=== PATIENT | female | born 1985 | race Caucasian/White ===

== ENCOUNTER 2016-11-17 17:07 | Emergency (ER) | payer OTHER ==
[~2016-11-17] VITALS: Ht 160 cm; Wt 115.0 kg
[~2016-11-17 17:07] MED LIST: IBUP600 PO; OXYC1SOL5 PO; PERI8.6T PO
[2016-11-17 17:09] VITALS: BP 175/112; PULSE 128; RESP 20; TEMP 98.2; O2SAT 99
[2016-11-17 17:19] VITALS: BP 174/92; PULSE 106; RESP 18; O2SAT 100
--- NOTE | 2016-11-17 17:26 | PD ---
HPI Chief Complaint: Chest Pain Time Seen by Provider: 17:17 Travel History International Travel<30 days: No Contact w/Intl Traveler<30days: No Traveled to known affect area: No History of Present Illness HPI The patient was seen and examined in the presence of the nurse. She complains of chest pain. Duration 7 hours. Severity is moderate. Location is center sternum. No injury. Denies fever or cough. No history of cardiac or pulmonary disease. No alleviating factors. She does have anxiety issues [facility] Past Medical History Medical History: Denies Significant Hx ?: Not Past Surgical History Section: Yes Social History Alcohol Use: No Tobacco Use: No Substance Use: No Allergies-Medications (Allergen,Severity, Reaction): Coded Allergies: No Known Allergies (Unverified , 02/04/15) Reported Meds & Prescriptions Reported Meds & Active Scripts Active No Active Prescriptions or Reported Medications Review of Systems General / Constitutional: No: Fever Eyes: No: Visual changes HENT: No: Headaches Cardiovascular: Positive: Chest Pain or Discomfort Respiratory: No: Shortness of Breath Gastrointestinal: No: Abdominal Pain Genitourinary: No: Dysuria Musculoskeletal: No: Pain Skin: No Rash Neurologic: No: Weakness Psychiatric: Positive: Anxiety, No: Depression Endocrine: No: Polydipsia Hematologic/Lymphatic: No: Easy Bruising Physical Exam Narrative GENERAL: Well-nourished, well-developed patient in no apparent distress. SKIN: Focused skin assessment reveals no rash and nodules. Skin is Warm and dry. HEAD: Atraumatic. Normocephalic. EYES: Pupils equal and round. No scleral icterus. No injection or drainage. ENT: No nasal bleeding or discharge. Mucous membranes pink and moist. NECK: Trachea midline. No JVD. CARDIOVASCULAR: Regular rate and rhythm. No murmur appreciated. RESPIRATORY: No accessory muscle use. Clear to auscultation. Breath sounds equal bilaterally. GASTROINTESTINAL: Abdomen soft, non-tender, nondistended. Hepatic and splenic margins not palpable. MUSCULOSKELETAL: No obvious deformities. No clubbing. No cyanosis. No edema. Has readily reproducible chest wall tenderness in the center sternum NEUROLOGICAL: Awake and alert. No obvious cranial nerve deficits. Motor grossly within normal limits. Normal speech. PSYCHIATRIC: Appropriate mood and affect; insight and judgment normal. Data Data Last Documented VS Vital Signs Date Time Temp Pulse Resp B/P Pulse Ox O2 Delivery O2 Flow Rate FiO2 11/17/16 17:29 162/72 11/17/16 17:19 106 18 100 Room Air 11/17/16 17:09 98.2 Orders Electrocardiogram (11/17/16 ) Electrocardiogram (11/17/16 ) [employer] Operator / Telemetry [email or web address] (11/17/16 17:22) [facility] Medical Decision Making Medical Screen Exam Complete: Yes Emergency Medical Condition: Yes Medical Record Reviewed: Yes Differential Diagnosis Differential diagnosis includes NE, angina, pericarditis, pleurisy, GERD, anxiety. Narrative Course I have reviewed the patient's electronic medical record. I reviewed her EKG which shows sinus rhythm without ST elevation or ectopy Extended cardiac monitoring reveals sinus rhythm without ectopy On arrival she was tachycardic but this spontaneously resolved and now her heart rate is 87 Her chest pain is clearly noncardiac and musculoskeletal and will not require urgent stress testing or inpatient evaluation Diagnosis Primary Impression: Chest pain in adult Additional Instructions: The patient was advised to follow up with their physician and return if they worsen. Med/Other Pt SpecificInfo: Other Scripts No Active Prescriptions or Reported Meds Disposition: 01 DISCHARGE HOME Condition: Stable Rafael Pham MD November 17, 2016 17:26
[2016-11-17 17:29] VITALS: BP 162/72
--- NOTE | 2016-11-18 14:34 | EKG ---
Date Performed: 11/17/2016 Time Performed: 17:21:56 PTAGE: 31 years EKG: Sinus rhythm WITH SINUS ARRHYTHMIA NORMAL ECG NO PREVIOUS TRACING DOCTOR: Julian Malloy Interpretating Date/Time 11/18/2016 14:33:03
[2016-12-17] MEDS ORDERED: CETI-14 PO (11:13)
== END 2016-11-17 19:17 | disposition home or self-care (01) ==
LOC: NEPC 17:07
DX: R07.9 Chest pain, unspecified (principal)
CPT/HCPCS: 93005; 99283

== ENCOUNTER 2016-11-30 23:43 | Emergency (ER) | payer OTHER ==
[2016-11-30 23:47] VITALS: BP 142/96; PULSE 98; RESP 18; TEMP 98.7; O2SAT 100
[2016-12-01] MEDS ORDERED: SODIUM CHLOR 0.9% 1000 ML INJ 1,000 ML IV SCH (03:02)
[2016-12-01] MEDS ORDERED: MORPHINE SULFATE 4 MG/ML INJ IV PUSH ONE (03:15)
[2016-12-01] MEDS ORDERED: ONDANSETRON HCL 4 MG/2 ML VIAL IVP ONE (03:15)
[2016-12-01] MEDS ORDERED: FAMOTIDINE 20 MG/2 ML VIAL IV PUSH ONE (03:15)
[2016-12-01] MEDS ORDERED: SODIUM CHLORIDE 0.9% FLUSH 10 ML FLUSH IV FLUSH PRN (03:15)
[2016-12-01 03:26] VITALS: RESP 16
[2016-12-01 03:30] LABS: BASOPHIL # 0.1 TH/MM3 (0-0.2); BASOPHIL % 0.6 % (0.0-2.0); EOSINOPHIL # 0.1 TH/MM3 (0-0.4); HEMO FLAGS DIFF FINAL; LYMPH % 26.7 % (9.0-44.0); LYMPHOCYTE # 2.5 TH/MM3 (1.0-4.8); MEAN CELL VOLUME 87.8 FL (80.0-100.0); MEAN CORPUSCULAR HEMOGLOBIN 29.8 PG (27.0-34.0); MEAN CORPUSCULAR HGB CONC 33.9 % (32.0-36.0); MONO % 6.7 % (0.0-8.0); PLATELET COUNT 238 TH/MM3 (150-450); RED BLOOD COUNT 4.44 MIL/MM3 (4.00-5.30); RED CELL DISTRIBUTION WIDTH 12.2 % (11.6-17.2); WHITE BLOOD COUNT 9.2 TH/MM3 (4.0-11.0)
[2016-12-01 03:54] LABS: BICARBONATE 28.6 MEQ/L (21.0-32.0); POTASSIUM 4.2 MEQ/L (3.5-5.1)
[2016-12-01 03:57] LABS: INDIRECT BILIRUBIN 0.4 MG/DL (0.0-0.8); TOTAL BILIRUBIN ADULT 0.5 MG/DL (0.2-1.0)
[2016-12-01 04:00] VITALS: BP 158/94; PULSE 78; RESP 16; O2SAT 99
[2016-12-01 04:05] VITALS: RESP 16
[2016-12-01 04:07] LABS: BACTERIA, URINE RARE /hpf; BLOOD, URINE NEG (NEG); COMMENT (UR) CULT NOT INDICATED; CULTURE IF INDICATED CULT NOT INDICATED; GLUCOSE,URINE NEG (NEG); KETONE, URINE TRACE mg/dL (NEG); MUCUS URINE MANY /lpf (OCC); NITRITE,URINE NEG (NEG); PH, URINE 5.5 (5.0-8.5); SQUAMOUS EPITHELIAL CELL URINE 11 /hpf (0-5); URINE COLOR YELLOW (YELLW/STRAW)
[2016-12-01 04:36] LABS: APTT (PATIENT) 28.1 SEC (24.3-30.1); INTERNATIONAL NORMALIZED RATIO 0.9 RATIO; PROTHROMBIN TIME - PATIENT 10.3 SEC (9.8-11.6)
--- NOTE | 2016-12-01 04:46 | RADRPT ---
EXAM DATE/TIME: 12/01/2016 04:18 [facility] COMPARISON: No previous studies available for comparison. INDICATIONS : Gallstones. MEDICAL HISTORY : Gallstones. SURGICAL HISTORY : section. ENCOUNTER: Initial ACUITY: 2 days PAIN SCORE: 7/10 LOCATION: Right upper quadrant MEASUREMENTS: LIVER: 16.4 cm length COMMON DUCT: 9 mm RIGHT KIDNEY: 11.7 x 5.1 x 5.5 cm FINDINGS: LIVER: Mildly prominent with increased echogenicity with no focal mass or ductal dilatation. COMMON DUCT: Abnormally prominent measuring up to 9 mm. GALLBLADDER: Normal in size and shape. There is a single mobile 7 mm gallstone no wall thickening or pericholecyst ic fluid. PANCREAS: The visualized portions are within normal limits. RIGHT KIDNEY: No evidence of hydronephrosis, stone, or mass. CONCLUSION: 1. Cholelithiasis with single mobile echogenic gallstone. 2. Dilatation common bile duct measuring up to 9 mm with no visualized stone. This of concern for pos sible distal obstruction. 3. Liver is mildly prominent with findings characteristic of fatty infiltration. Sanjeev Lloyd MD on December 01, 2016 at 4:43 Board Certified Radiologist. This report was verified electronically.
[2016-12-01] MEDS ORDERED: IOHEXOL 350 MG/ML 10 ML VIAL (for RAD DIAG) IV ONE (05:24)
--- NOTE | 2016-12-01 05:50 | RADRPT ---
EXAM DATE/TIME: 12/01/2016 05:22 [facility] COMPARISON: No previous studies available for comparison. INDICATIONS : Epigastric abdominal pain. IV CONTRAST: 100 cc Omnipaque 350 (iohexol) IV ORAL CONTRAST: No oral contrast ingested. RADIATION DOSE: 15.21 CTDIvol (mGy) MEDICAL HISTORY : Gallstones. SURGICAL HISTORY : section. ENCOUNTER: Initial ACUITY: 1 day PAIN SCALE: 7/10 LOCATION: epigastric abdomen TECHNIQUE: Volumetric scanning of the abdomen and pelvis was performed. Using automated exposure control and ad justment of the mA and/or kV according to patient size, radiation dose was kept as low as reasonably achievable to obtain optimal diagnostic quality images. FINDINGS: LOWER LUNGS: The visualized lower lungs are clear. LIVER: Homogeneous density without lesion. There is no dilation of the biliary tree. There is small calcifi ed gallstones versus mild calcification of the wall of the gallbladder. There is mild steatosis of th e liver. SPLEEN: Normal size without lesion. PANCREAS: Within normal limits. KIDNEYS: Normal in size and shape. There is mild cortical scarring involving the inferior right kidney. There is no mass, stone or hydronephrosis. ADRENAL GLANDS: Within normal limits. VASCULAR: There is no aortic aneurysm. BOWEL/MESENTERY: The stomach, small bowel, and colon demonstrate no acute abnormality. There is no free intraperitone al air or fluid. ABDOMINAL WALL: Within normal limits. RETROPERITONEUM: There is no lymphadenopathy. BLADDER: No wall thickening or mass. REPRODUCTIVE: Within normal limits. Intrauterine device is present. INGUINAL: There is no lymphadenopathy or hernia. MUSCULOSKELETAL: Within normal limits for patient age. CONCLUSION: 1. Tiny calcified gallstones versus calcification in the wall the gallbladder. 2. Mild hepatic steatosis. 3. Mild cortical scarring in the right kidney. Sanjeev Lloyd MD on December 01, 2016 at 5:47 Board Certified Radiologist. This report was verified electronically.
[2016-12-01] MEDS ORDERED: NORC5TAB PO (06:28)
--- NOTE | 2016-12-01 06:28 | PD ---
HPI Chief Complaint: Abdominal Pain Time Seen by Provider: 02:56 Travel History International Travel<30 days: No Contact w/Intl Traveler<30days: No Traveled to known affect area: No History of Present Illness HPI Patient is a 31-year-old female comes in complaining of abdominal pain. She says the pain started last night, and has been getting worse. She reports nausea and vomiting. She denies fever or chills. She says she has been having episodes of this pain on and off for the past few weeks. She was seen at an urgent care where an ultrasound was performed and she was told she had gallstones at that time. She was told that if she had any more pain she should go to the emergency department. [facility] Past Medical History Immunizations Current: Yes Tetanus Vaccination: Unknown Influenza Vaccination: No ?: Not Past Surgical History Section: Yes Social History Alcohol Use: No Tobacco Use: No Substance Use: No Allergies-Medications (Allergen,Severity, Reaction): Coded Allergies: No Known Allergies (Unverified , 12/01/16) Reported Meds & Prescriptions Reported Meds & Active Scripts Active No Active Prescriptions or Reported Medications Review of Systems Except as stated in HPI: all other systems reviewed are Neg General / Constitutional: No: Fever, Chills HENT: No: Headaches, Lightheadedness Cardiovascular: No: Chest Pain or Discomfort Respiratory: No: Shortness of Breath Gastrointestinal: Positive: Nausea, Vomiting, Abdominal Pain Genitourinary: No: Dysuria Musculoskeletal: No: Edema Skin: No Rash, No Change in Pigmentation Neurologic: No: Weakness, Dizziness Physical Exam Narrative GENERAL: Awake and alert, in no acute distress. SKIN: Focused skin assessment warm/dry. HEAD: Atraumatic. Normocephalic. EYES: Pupils equal and round. No scleral icterus. ENT: Mucous membranes pink and moist. NECK: Trachea midline. No JVD. CARDIOVASCULAR: Regular rate and rhythm. No murmur appreciated. RESPIRATORY: No accessory muscle use. Clear to auscultation. Breath sounds equal bilaterally. GASTROINTESTINAL: Abdomen soft, nondistended. Tender to palpation of the right upper quadrant. No rebound or guarding. MUSCULOSKELETAL: No obvious deformities. No clubbing. No cyanosis. No edema. NEUROLOGICAL: Awake and alert. No obvious cranial nerve deficits. Motor grossly within normal limits. Normal speech. PSYCHIATRIC: Appropriate mood and affect; insight and judgment normal. Data Data Last Documented VS Vital Signs Date Time Temp Pulse Resp B/P Pulse Ox O2 Delivery O2 Flow Rate FiO2 12/01/16 04:05 16 12/01/16 04:00 78 158/94 99 Room Air 11/30/16 23:47 98.7 Orders Basic Metabolic Panel (Bmp) (12/01/16 03:02) Complete Blood Count With Diff (12/01/16 03:02) Lipase (12/01/16 03:02) Prothrombin Time / Inr (Pt) (12/01/16 03:02) Act Partial Throm Time (Ptt) (12/01/16 03:02) Urinalysis - C+S If Indicated (12/01/16 03:02) Ua Includes Microscopic (12/01/16 03:02) Iv Access Insert/Monitor (12/01/16 03:02) Ecg Monitoring (12/01/16 03:02) Oximetry (12/01/16 03:02) Morphine Inj (Morphine Inj) (12/01/16 03:15) Ondansetron Inj (Zofran Inj) (12/01/16 03:15) Sodium Chlor 0.9% 1000 Ml Inj (Ns 1000 M (12/01/16 03:02) Sodium Chloride 0.9% Flush (Ns Flush) (12/01/16 03:15) Famotidine Inj (Pepcid Inj) (12/01/16 03:15) Ed Urine Pregnancytest Poc (12/01/16 03:02) Hepatic Functional Panel (12/01/16 03:02) Us Abdomen Gallbladder (12/01/16 ) Ct Abd/Pel W Iv Contrast(Rout) (12/01/16 ) Iohexol 350 Inj (Omnipaque 350 Inj) (12/01/16 05:24) Labs Laboratory Tests Test 12/01/16 03:15 White Blood Count 9.2 TH/MM3 Red Blood Count 4.44 MIL/MM3 Hemoglobin 13.2 GM/DL Hematocrit 39.0 % Mean Corpuscular Volume 87.8 FL Mean Corpuscular Hemoglobin 29.8 PG Mean Corpuscular Hemoglobin 33.9 % Concent Red Cell Distribution Width 12.2 % Platelet Count 238 TH/MM3 Mean Platelet Volume 8.8 FL Neutrophils (%) (Auto) 65.0 % Lymphocytes (%) (Auto) 26.7 % Monocytes (%) (Auto) 6.7 % Eosinophils (%) (Auto) 1.0 % Basophils (%) (Auto) 0.6 % Neutrophils # (Auto) 6.0 TH/MM3 Lymphocytes # (Auto) 2.5 TH/MM3 Monocytes # (Auto) 0.6 TH/MM3 Eosinophils # (Auto) 0.1 TH/MM3 Basophils # (Auto) 0.1 TH/MM3 CBC Comment DIFF FINAL Differential Comment Prothrombin Time 10.3 SEC Prothromb Time International 0.9 RATIO Ratio Activated Partial 28.1 SEC Thromboplast Time Urine Color YELLOW Urine Turbidity HAZY Urine pH 5.5 Urine Specific [place] 1.033 Urine Protein TRACE mg/dL Urine Glucose (UA) NEG mg/dL Urine Ketones TRACE mg/dL Urine Occult Blood NEG Urine Nitrite NEG Urine Bilirubin NEG Urine Urobilinogen LESS THAN 2.0 MG/DL Urine Leukocyte Esterase SMALL Urine RBC 1 /hpf Urine WBC 6 /hpf Urine Squamous Epithelial 11 /hpf Cells Urine Bacteria RARE /hpf Urine Mucus MANY /lpf Microscopic Urinalysis Comment CULT NOT INDICATED Sodium Level 139 MEQ/L Potassium Level 4.2 MEQ/L Chloride Level 105 MEQ/L Carbon Dioxide Level 28.6 MEQ/L Anion Gap 5 MEQ/L Blood Urea Nitrogen 10 MG/DL Creatinine 0.94 MG/DL Estimat Glomerular Filtration 69 ML/MIN Rate Random Glucose 99 MG/DL Calcium Level 8.9 MG/DL Total Bilirubin 0.5 MG/DL Direct Bilirubin 0.1 MG/DL Indirect Bilirubin 0.4 MG/DL Aspartate Amino Transf 19 U/L (AST/SGOT) Alanine Aminotransferase 34 U/L (ALT/SGPT) Alkaline Phosphatase 74 U/L Total Protein 8.0 GM/DL Albumin 3.7 GM/DL Lipase 102 U/L [facility] Medical Decision Making Medical Screen Exam Complete: Yes Emergency Medical Condition: Yes Medical Record Reviewed: Yes Differential Diagnosis Cholecystitis versus cholelithiasis versus pancreatitis versus GERD versus gastritis Narrative Course Patient is a 31-year-old female comes in complaining of abdominal pain. Exam shows right upper quadrant tenderness. IV established, labs sent. Labs show no acute abnormalities. Ultrasound performed of the gallbladder shows a gallstone, no gallbladder wall thickening, there is dilatation of the condom bile duct [address] of the abdomen and pelvis performed shows calcification versus stone in the gallbladder. No other abnormalities. Last 24 hours Impressions Gall Bladder Ultrasound 12/01/16 0000 Signed Impressions: Service Date/Time: Thursday, December 01, 2016 04:18 - CONCLUSION: 1. Cholelithiasis with single mobile echogenic gallstone. 2. Dilatation common bile duct measuring up to 9 mm with no visualized stone. This of concern for possible distal obstruction. 3. Liver is mildly prominent with findings characteristic of fatty infiltration. Sanjeev Lloyd MD Abdomen/Pelvis CT 12/01/16 0000 Signed Impressions: Service Date/Time: Thursday, December 01, 2016 05:22 - CONCLUSION: 1. Tiny calcified gallstones versus calcification in the wall the gallbladder. 2. Mild hepatic steatosis. 3. Mild cortical scarring in the right kidney. Sanjeev Lloyd MD Patient given pain medicine, Zofran. She is informed of the results of the testing. She is advised follow-up with a general surgeon. She has an appointment next month with the surgeon. She is advised to take pain medicine as needed. Advised to avoid fatty foods. Advised to return to the ED as needed for any worsening symptoms. Diagnosis Primary Impression: Gallstones Additional Impression: Abdominal pain Qualified Code: R10.11 - Right upper quadrant abdominal pain Referrals: Zaheer Zarate MD call for appointment Charlie Infante MD call for appointment Patient Instructions: Gallstones (ED), General Instructions Additional Instructions: Follow up with general surgery. Take pain medicine as needed. Return to the ED as needed for any worsening symptoms. Scripts Hydrocodone-Acetaminophen ([place])5-325 mg Tab1 Tab PO Q6H PRN (PAIN) #12 TAB Ref 0 Prov:Shahida Rosario MD 12/01/16 Disposition: 01 DISCHARGE HOME Condition: Stable Shahida Rosaroi MD Dec 01, 2016 06:28
[2016-12-17] MEDS ORDERED: CETI-14 PO (11:13)
== END 2016-12-01 06:50 | disposition home or self-care (01) ==
LOC: NEPE 23:43
DX: K80.20 Calculus of gallbladder without cholecystitis without obstruction (principal); K76.0 Fatty (change of) liver, not elsewhere classified
CPT/HCPCS: 74177; 76705; 80048; 80076; 81001; 83690; 84703; 85025; 85610; 85730; 96361; 96374; 96375; 99285; J2270; J2405; J7030; Q9967

== ENCOUNTER → 2016-12-18 | Day surgery (SDC) | payer OTHER ==
[~2016-12-18] VITALS: Ht 160 cm; Wt 111.6 kg
[~2016-12-18] MED LIST changes: +*ONDANSETRON 4 MG VIAL PERIprocedural Use ONLY ONE; +*morphine SULFATE 8 MG/ML PERIprocedure ONLY ONE; +ACETAMINOPHEN 1000 MG/100 ML VIAL IV SCH; +BUPIVACAINE/EPINEPHRINE 0.25% 50 ML VIAL INFIL ONE; +CETI-14 PO; +CHLORHEXIDINE GLUCONATE 2 % 1 PACK (2 CLOTHS) TOPICAL PRN; +DEXAMETHASONE SOD PHOS 4 MG/ML VIAL ONE; +DO NOT ADM ANY ANTICOAGULANT DRUGS PRN; +FAMOTIDINE 20 MG/2 ML VIAL ONE; -IBUP600 PO; +INSULIN HUMAN REGULAR 1,000 UNITS/10 ML VIAL SQ PRN; +KETOROLAC TROMETHAMINE 30 MG/ML (IVP) VIAL IV PUSH ONE; +KETOROLAC TROMETHAMINE 30 MG/ML (IVP) VIAL ONE; +LACTATED RINGER'S 1000 ML INJ 1,000 ML IV ONE; +LACTATED RINGER'S 1000 ML IV PRN; +METOPROLOL TARTRATE 25 MG TAB PO PRN; +MIDAZOLAM HCL 2 MG/2 ML VIAL ONE; +MORPHINE SULFATE 4 MG/ML INJ IV PRN; +NEOSTIGMINE 3 MG/3 ML SYR IV ONE; +ONDANSETRON HCL 4 MG/2 ML VIAL IV PRN; +ONDANSETRON HCL 4 MG/2 ML VIAL IV PUSH ONE; -OXYC1SOL5 PO; -PERI8.6T PO; +POVIDONE IODINE 5% (ANTISEPSIS KIT) 4 APPLICATIONS EACH NARE PRN; +PROMETHAZINE INJ 25 MG/ML VIAL ONE; +PROPOFOL 200 MG/20 ML AMP IV ONE; +SODIUM CHLORID 0.9% 500 ML IV PRN; +SODIUM CHLORIDE 0.9% FLUSH 10 ML FLUSH IV FLUSH PRN; +SODIUM CHLORIDE 0.9% FLUSH 10 ML FLUSH IV FLUSH SCH; +ceFAZolin 2 GM PREMIX 50 ML IV SCH; +fentaNYL CITRATE 250 MCG/5 ML AMP ONE; +oxyCODONE/ACETAMINOPHEN 5 MG/325 MG TAB PO PRN
[2016-12-18 09:15] VITALS: BP 134/85; PULSE 82; RESP 18; TEMP 98.9; O2SAT 99
--- NOTE | 2016-12-18 13:53 | PD.OP ---
cc: Chaitanya Farr MD Operative Report Date of Surgery: Dec 18, 2016 Preoperative Diagnosis: Chronic cholecystitis and cholelithiasis Postoperative Diagnosis: Chronic cholecystitis and cholelithiasis Procedure: Laparoscopic cholecystectomy Anesthesia: Gen. endotracheal Surgeon: Chaitanya Farr Entry Level Buyer(s): WANDER Martinez Operation and Findings: Operative findings: The patient had a very distended thick-walled gallbladder. There was a fairly large stone which was impacted in the neck of the gallbladder causing formation of hydrops of the gallbladder. The common bile duct was seen to be of normal caliber. No other abnormalities were noted other than is very small chocolate cyst in the left ovary. Operative procedure: The patient was brought to the operating room and after satisfactory general endotracheal anesthesia was obtained, the abdomen was prepped and draped in the usual sterile fashion. 0.25% Marcaine with epinephrine was used to infiltrate the skin for local anesthesia. A 5 mm trocar was inserted into the peritoneal cavity in the midline just above the umbilicus under direct visualization. The abdomen was then distended to 15 mmHg using carbon dioxide. The camera was reinserted and visceral injury inspected for, with none being identified. Under direct visualization a 5 port and a 12 port placed in the upper abdomen. The fundus the gallbladder was seen to be quite tense and couldn't be grasped easily. Accordingly a 16-gauge spinal needle and a 60 mL syringe were connected and the needle was inserted into the gallbladder percutaneously and approximately 30 mL's of relatively clear, viscous fluid was withdrawn. The gallbladder was then grasped retracted superiorly over the right lobe of the liver, after which Saenz's pouch was grasped and retracted inferiorly and laterally, placing tension on the hepatoduodenal ligament. The cystic duct and cystic artery were dissected free bluntly to obtain the critical view. The artery was then divided near central the gallbladder with a Harmonic scalpel. The cystic duct was seen to be somewhat thick-walled and accordingly was controlled with hemoclips on the common duct side and then divided near the gallbladder using Harmonic scalpel. The gallbladder was then dissected free from the liver bed using the Harmonic. He was placed within an Endo Catch bag and brought through the upper midline incision where was withdrawn without problem. Hemostasis was checked for and the liver bed was seen to be oozing somewhat. A piece of nu knit gauze was placed in the liver bed and and left. Prior to placing them in a gauze irrigation was carried out and the cystic duct cystic artery stumps were both inspected and found to be intact with no leakage of bile or blood. After assuring adequate hemostasis in the liver, the carbon dioxide was vented as completely as possible the atmosphere. The ports were removed and the 12 mm fascial defect closed with interrupted 0 Vicryl suture and skin closed with interrupted 4-0 PDS subcuticular stitches. Steri-Strips were applied and the patient awakened taken from the operating, satisfactory condition, having tolerated the procedure problem. Estimated blood loss was less than 20 mL's. The instrument, sponge, and needle counts were reported as being correct 2 at the end of the procedure. Chaitanya Farr MD Dec 18, 2016 13:53
[2016-12-18 15:38] VITALS: BP 146/72; PULSE 61; RESP 18; O2SAT 98
== END | disposition home or self-care (01) ==
LOC: HSDC 08:31
PROVIDERS: ATTEND Surgery
DX: K80.12 Calculus of gallbladder with acute and chronic cholecystitis without obstruction (principal); E78.5 Hyperlipidemia, unspecified
CPT/HCPCS: 00790; 47562; 88304; J0131; J0690; J1100; J1885; J2250; J2270; J2405; J2550; J2710; J3010; J7120

== ENCOUNTER 2017-07-31 12:08 | Emergency (ER) | payer OTHER ==
[~2017-07-31] VITALS: Ht 160 cm; Wt 113.0 kg
[~2017-07-31 12:08] MED LIST changes: -*ONDANSETRON 4 MG VIAL PERIprocedural Use ONLY ONE; -*morphine SULFATE 8 MG/ML PERIprocedure ONLY ONE; -ACETAMINOPHEN 1000 MG/100 ML VIAL IV SCH; -BUPIVACAINE/EPINEPHRINE 0.25% 50 ML VIAL INFIL ONE; -CHLORHEXIDINE GLUCONATE 2 % 1 PACK (2 CLOTHS) TOPICAL PRN; -DEXAMETHASONE SOD PHOS 4 MG/ML VIAL ONE; -DO NOT ADM ANY ANTICOAGULANT DRUGS PRN; -FAMOTIDINE 20 MG/2 ML VIAL ONE; -INSULIN HUMAN REGULAR 1,000 UNITS/10 ML VIAL SQ PRN; -KETOROLAC TROMETHAMINE 30 MG/ML (IVP) VIAL IV PUSH ONE; -KETOROLAC TROMETHAMINE 30 MG/ML (IVP) VIAL ONE; -LACTATED RINGER'S 1000 ML INJ 1,000 ML IV ONE; -LACTATED RINGER'S 1000 ML IV PRN; -METOPROLOL TARTRATE 25 MG TAB PO PRN; -MIDAZOLAM HCL 2 MG/2 ML VIAL ONE; -MORPHINE SULFATE 4 MG/ML INJ IV PRN; -NEOSTIGMINE 3 MG/3 ML SYR IV ONE; -ONDANSETRON HCL 4 MG/2 ML VIAL IV PRN; -ONDANSETRON HCL 4 MG/2 ML VIAL IV PUSH ONE; -POVIDONE IODINE 5% (ANTISEPSIS KIT) 4 APPLICATIONS EACH NARE PRN; -PROMETHAZINE INJ 25 MG/ML VIAL ONE; -PROPOFOL 200 MG/20 ML AMP IV ONE; -SODIUM CHLORID 0.9% 500 ML IV PRN; -SODIUM CHLORIDE 0.9% FLUSH 10 ML FLUSH IV FLUSH PRN; -SODIUM CHLORIDE 0.9% FLUSH 10 ML FLUSH IV FLUSH SCH; -ceFAZolin 2 GM PREMIX 50 ML IV SCH; -fentaNYL CITRATE 250 MCG/5 ML AMP ONE; -oxyCODONE/ACETAMINOPHEN 5 MG/325 MG TAB PO PRN
[2017-07-31 12:09] VITALS: BP 207/107; PULSE 107; RESP 18; TEMP 99.3; O2SAT 98
[2017-07-31 12:24] VITALS: BP 176/86
[2017-07-31] MEDS ORDERED: ROBA500T PO (14:57)
[2017-07-31] MEDS ORDERED: DICL75TA PO (14:57)
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
== END 2017-07-31 15:52 | disposition home or self-care (01) ==
LOC: NEPK 12:08
DX: S13.4XXA Sprain of ligaments of cervical spine, initial encounter (principal); V49.49XA Driver injured in collision with other motor vehicles in traffic accident, initial encounter; Y92.410 Unspecified street and highway as the place of occurrence of the external cause
CPT/HCPCS: 72050; 72072; 99283